=== PATIENT | female | born 1940 | race Caucasian/White ===

== ENCOUNTER 2017-10-21 05:52 | Emergency (ER) | payer MEDICARE, BC ==
[~2017-10-21] VITALS: Ht 160 cm; Wt 101.4 kg
[~2017-10-21 05:52] MED LIST: CARVEDILOL25 MG PO; ENALAPRIL5 MG PO; FUROSEMIDE20 MG PO; GLIPIZIDE2.5 MG PO; IBUPROFEN600 MG PO; KLOR-CON/2525 MEQ PO; METFORMIN500 MG PO; NYSTATIN OINTME15 GM TP; ZOCOR 40MG40 MG PO
[2017-10-21 05:57] VITALS: BP 158/79; TEMP 98.7
[2017-10-21 06:54] VITALS: PULSE 79
== END 2017-10-21 06:55 | disposition home or self-care (01) ==
LOC: COL.ER 05:52
DX: M25.561 Pain in right knee (principal); Z79.84 Long term (current) use of oral hypoglycemic drugs
CPT/HCPCS: J1885

== ENCOUNTER 2018-02-18 18:21 | Emergency (ER) | payer MEDICARE, BC ==
[~2018-02-18] VITALS: Ht 160 cm; Wt 96.4 kg
[~2018-02-18 18:21] MED LIST changes: -FUROSEMIDE20 MG PO; +LASIX 20MG TABL20 MG PO
[2018-02-18 18:24] VITALS: TEMP 97.6
[2018-02-18 19:17] LABS: BASO % 0.5 % (0.0-2.0); EOS # 0.1 (0.0-0.7); EOS % 1.4 % (0-4.0); GRAN # 3.5 (1.4-6.5); GRAN % 53.6 % (42.2-75.2); HEMATOCRIT 44.1 % (37.0-47.0); LYMPH # 2.5 (1.2-3.4); LYMPH % 37.9 % (20.0-51.0); MEAN CELL VOLUME 90 fl (80.0-100.0); MEAN CORPUSCULAR HEMOGLOBIN 29 pg (27.0-31.0); MEAN CORPUSCULAR HGB CONC 32 g/dl (33.0-37.0); MEAN PLATELET VOLUME 9.8 fl (7.4-10.4); MONO # 0.4 (0.1-0.6); MONO % 6.4 % (1.7-9.3); PLATELET COUNT 233 K/mm3 (130-400); RED BLOOD COUNT 4.92 M/mm3 (4.10-5.30); REDCELL DISTRIBUTION WIDTH-CV 14.6 % (11.5-14.5)
[2018-02-18 19:32] LABS: ALANINE AMINOTRANSFERASE 28 U/L (9-52); ALBUMIN 3.7 gm/dL (3.5-5.0); ALKALINE PHOSPHATASE 124 U/L (50-136); ANION GAP 5 mmol/L (7-16); AST,SGOT 13 U/L (15-37); BILIRUBIN,TOTAL 0.3 mg/dL (0.0-1.0); BLOOD UREA NITROGEN 13 mg/dL (7-17); C-REACTIVE PROTEIN 1.6 mg/dL (0.0-0.9); CALCIUM 8.6 mg/dL (8.4-10.2); CARBON DIOXIDE 27 mmol/L (22-30); CHLORIDE 105 mmol/L (98-107); CREATININE, serum 0.61 mg/dL (0.52-1.25); GLUCOSE 252 mg/dL (74-106); POTASSIUM 3.9 mmol/L (3.4-5.0); SODIUM 137 mmol/L (137-145); TOTAL PROTEIN 6.8 gm/dL (6.4-8.2)
[2018-02-18 19:42] LABS: TROPONIN-I < 0.012 ng/mL (0.000-0.034)
[2018-02-18] MEDS ORDERED: LIPITOR 10MG10 MG PO (20:37)
[2018-02-18] MEDS ORDERED: PROTONIX 40MG T40 MG PO (20:37)
[2018-02-18 21:05] VITALS: BP 125/87; PULSE 103
== END 2018-02-18 21:05 | disposition home or self-care (01) ==
LOC: COL.ER 18:21
PROVIDERS: Family Medicine
DX: K62.5 Hemorrhage of anus and rectum (principal); R00.0 Tachycardia, unspecified; I50.9 Heart failure, unspecified; E11.9 Type 2 diabetes mellitus without complications; K59.00 Constipation, unspecified; Z79.84 Long term (current) use of oral hypoglycemic drugs

== ENCOUNTER → 2018-07-14 | Outpatient (CLI) | payer MEDICARE, BC ==
[~2018-07-14] MED LIST changes: +LIPITOR 10MG10 MG PO; +PROTONIX 40MG T40 MG PO
== END ==
LOC: MC.RAD 12:56
DX: Z12.31 Encounter for screening mammogram for malignant neoplasm of breast (principal); Z78.0 Asymptomatic menopausal state

== ENCOUNTER 2018-09-16 18:04 | Emergency (ER) | payer MEDICARE, BC ==
[~2018-09-16] VITALS: Ht 160 cm; Wt 100.5 kg
[2018-09-16 18:14] VITALS: TEMP 97
[2018-09-16 18:41] VITALS: BP 110/66; PULSE 93
== END 2018-09-16 18:46 | disposition home or self-care (01) ==
LOC: COL.ER 18:04
DX: H11.32 Conjunctival hemorrhage, left eye (principal); E11.9 Type 2 diabetes mellitus without complications; I10 Essential (primary) hypertension; E78.00 Pure hypercholesterolemia, unspecified; J44.1 Chronic obstructive pulmonary disease with (acute) exacerbation; Z87.891 Personal history of nicotine dependence; Z79.84 Long term (current) use of oral hypoglycemic drugs

== ENCOUNTER 2018-09-22 17:17 | Emergency (ER) | payer MEDICARE, BC ==
[2018-09-22 17:25] VITALS: TEMP 97.8
[2018-09-22 19:39] LABS: BASO % 0.3 % (0.0-2.0); EOS # 0.1 (0.0-0.7); EOS % 0.8 % (0-4.0); GRAN # 6.3 (1.4-6.5); GRAN % 71.4 % (42.2-75.2); HEMATOCRIT 45.7 % (37.0-47.0); HEMOGLOBIN 14.6 g/dl (12.5-16.0); LYMPH # 1.9 (1.2-3.4); LYMPH % 21.4 % (20.0-51.0); MEAN CELL VOLUME 88 fl (80.0-100.0); MEAN CORPUSCULAR HEMOGLOBIN 28 pg (27.0-31.0); MEAN CORPUSCULAR HGB CONC 32 g/dl (33.0-37.0); MEAN PLATELET VOLUME 9.5 fl (7.4-10.4); MONO # 0.5 (0.1-0.6); MONO % 5.8 % (1.7-9.3); PLATELET COUNT 255 K/mm3 (130-400); RED BLOOD COUNT 5.22 M/mm3 (4.10-5.30)
[2018-09-22 19:53] LABS: ALBUMIN 3.9 gm/dL (3.5-5.0); BILIRUBIN,TOTAL 0.6 mg/dL (0.0-1.0); C-REACTIVE PROTEIN 2.3 mg/dL (0.0-0.9); CREATININE, serum 0.88 (0.52-1.25); POTASSIUM 3.9 mmol/L (3.4-5.0); TOTAL PROTEIN 7.2 gm/dL (6.4-8.2)
[2018-09-22 20:29] LABS: INR 1.1 (0.8-3.0); PROTHROMBIN TIME 12.3 SECONDS (9.7-12.8)
[2018-09-22] MEDS ORDERED: LIDODERM 5% PATC1 EA TP (20:51)
[2018-09-22 21:00] VITALS: BP 134/65; PULSE 68
== END 2018-09-22 21:00 | disposition home or self-care (01) ==
LOC: COL.ER 17:17
PROVIDERS: Emergency Medicine
DX: M25.511 Pain in right shoulder (principal); E78.5 Hyperlipidemia, unspecified; I10 Essential (primary) hypertension; E11.9 Type 2 diabetes mellitus without complications; Z90.710 Acquired absence of both cervix and uterus; Z90.49 Acquired absence of other specified parts of digestive tract
CPT/HCPCS: J1885

== ENCOUNTER → 2018-09-27 | Outpatient (CLI) | payer MEDICARE, BC ==
[~2018-09-27] MED LIST changes: +LIDODERM 5% PATC1 EA TP
== END ==
LOC: COL.RAD 10:23
DX: R91.1 Solitary pulmonary nodule (principal)
CPT/HCPCS: Q9967

== ENCOUNTER 2018-11-26 21:43 | Emergency (ER) | payer MEDICARE, BC ==
[~2018-11-26] VITALS: Ht 162.6 cm; Wt 100.5 kg
[2018-11-26 21:57] VITALS: TEMP 98.1
[2018-11-26] MEDS ORDERED: ULTRAM 50MG TAB50 MG PO ×2 (22:17→23:50)
[2018-11-26 22:54] LABS: BASO % 0.4 % (0.0-2.0); EOS # 0.1 (0.0-0.7); EOS % 0.8 % (0-4.0); GRAN # 6.8 (1.4-6.5); GRAN % 71.2 % (42.2-75.2); HEMOGLOBIN 14.1 g/dl (12.5-16.0); LYMPH # 1.9 (1.2-3.4); LYMPH % 19.9 % (20.0-51.0); MEAN CELL VOLUME 89 fl (80.0-100.0); MEAN CORPUSCULAR HEMOGLOBIN 28 pg (27.0-31.0); MEAN CORPUSCULAR HGB CONC 31 g/dl (33.0-37.0); MEAN PLATELET VOLUME 9.5 fl (7.4-10.4); MONO # 0.7 (0.1-0.6); MONO % 7.3 % (1.7-9.3); PLATELET COUNT 230 K/mm3 (130-400); RED BLOOD COUNT 5.04 M/mm3 (4.10-5.30); REDCELL DISTRIBUTION WIDTH-CV 16.1 % (11.5-14.5)
[2018-11-26 23:04] LABS: ALANINE AMINOTRANSFERASE 11 U/L (9-52); ALBUMIN 3.8 gm/dL (3.5-5.0); ALKALINE PHOSPHATASE 146 U/L (50-136); ANION GAP 12 mmol/L (7-16); AST,SGOT 14 U/L (15-37); BILIRUBIN,TOTAL 0.4 mg/dL (0.0-1.0); BLOOD UREA NITROGEN 16 mg/dL (7-17); CALCIUM 8.5 mg/dL (8.4-10.2); CARBON DIOXIDE 31 mmol/L (22-30); CHLORIDE 99 mmol/L (98-107); CREATININE, serum 0.65 (0.52-1.25); GLUCOSE 197 mg/dL (74-106); POTASSIUM 3.5 mmol/L (3.4-5.0); SODIUM 141 mmol/L (137-145); TOTAL PROTEIN 6.8 gm/dL (6.4-8.2)
[2018-11-26 23:19] LABS: TROPONIN-I < 0.012 ng/mL (0.000-0.035)
[2018-11-27 02:10] VITALS: BP 106/63; PULSE 91
== END 2018-11-27 01:55 | disposition home or self-care (01) ==
LOC: COL.ER 21:43
PROVIDERS: Emergency Medicine
DX: M54.6 Pain in thoracic spine (principal); E78.5 Hyperlipidemia, unspecified; F03.90 Unspecified dementia, unspecified severity, without behavioral disturbance, psychotic disturbance, mood disturbance, and anxiety; K21.9 Gastro-esophageal reflux disease without esophagitis; Z90.89 Acquired absence of other organs; Z87.891 Personal history of nicotine dependence; Z79.84 Long term (current) use of oral hypoglycemic drugs; Z87.09 Personal history of other diseases of the respiratory system
CPT/HCPCS: Q9967

== ENCOUNTER 2018-12-03 10:41 | Emergency (ER) | payer MEDICARE, BC ==
[~2018-12-03] VITALS: Ht 160 cm; Wt 100.2 kg
[~2018-12-03 10:41] MED LIST changes: +ULTRAM 50MG TAB50 MG PO
[2018-12-03 11:13] LABS: BASO % 0.4 % (0.0-2.0); EOS # 0.1 (0.0-0.7); EOS % 0.9 % (0-4.0); GRAN # 8.1 (1.4-6.5); GRAN % 78.9 % (42.2-75.2); HEMATOCRIT 44.3 % (37.0-47.0); HEMOGLOBIN 13.8 g/dl (12.5-16.0); LYMPH # 1.4 (1.2-3.4); LYMPH % 13.5 % (20.0-51.0); MEAN CELL VOLUME 90 fl (80.0-100.0); MEAN CORPUSCULAR HEMOGLOBIN 28 pg (27.0-31.0); MEAN CORPUSCULAR HGB CONC 31 g/dl (33.0-37.0); MEAN PLATELET VOLUME 9.6 fl (7.4-10.4); MONO # 0.6 (0.1-0.6); MONO % 5.9 % (1.7-9.3); PLATELET COUNT 264 K/mm3 (130-400); RED BLOOD COUNT 4.92 M/mm3 (4.10-5.30); REDCELL DISTRIBUTION WIDTH-CV 15.7 % (11.5-14.5)
[2018-12-03 11:19] LABS: INR 0.9 (0.8-3.0); PROTHROMBIN TIME 10.8 SECONDS (9.7-12.8)
[2018-12-03 11:25] LABS: ALANINE AMINOTRANSFERASE 11 U/L (9-52); ALBUMIN 3.8 gm/dL (3.5-5.0); ALKALINE PHOSPHATASE 141 U/L (50-136); ANION GAP 10 mmol/L (7-16); AST,SGOT 17 U/L (15-37); BILIRUBIN,TOTAL 0.6 mg/dL (0.0-1.0); BLOOD UREA NITROGEN 15 mg/dL (7-17); C-REACTIVE PROTEIN 1.2 mg/dL (0.0-0.9); CALCIUM 8.6 mg/dL (8.4-10.2); CARBON DIOXIDE 29 mmol/L (22-30); CHLORIDE 99 mmol/L (98-107); CREATININE, serum 0.73 (0.52-1.25); GLUCOSE 211 mg/dL (74-106); LIPASE 78 U/L (23-300); SODIUM 138 mmol/L (137-145); TOTAL PROTEIN 6.9 gm/dL (6.4-8.2)
[2018-12-03 11:34] LABS: TROPONIN-I < 0.012 ng/mL (0.000-0.035)
[2018-12-03 15:51] VITALS: BP 114/62; PULSE 82
== END 2018-12-03 15:51 | disposition home or self-care (01) ==
LOC: COL.ER 10:41
PROVIDERS: Emergency Medicine
DX: R07.89 Other chest pain (principal); E78.00 Pure hypercholesterolemia, unspecified; I10 Essential (primary) hypertension; E78.5 Hyperlipidemia, unspecified; F03.90 Unspecified dementia, unspecified severity, without behavioral disturbance, psychotic disturbance, mood disturbance, and anxiety; Z87.891 Personal history of nicotine dependence; Z90.89 Acquired absence of other organs; Z79.84 Long term (current) use of oral hypoglycemic drugs
CPT/HCPCS: J2405; J7030

== ENCOUNTER 2019-05-06 14:25 | Emergency (ER) | payer MEDICARE, BC ==
[~2019-05-06] VITALS: Ht 160 cm; Wt 100.0 kg
[2019-05-06 14:52] VITALS: BP 133/109
[2019-05-06 16:49] LABS: BASO % 0.3 % (0.0-2.0); EOS % 0.4 % (0-4.0); GRAN # 6.6 (1.4-6.5); GRAN % 69.1 % (42.2-75.2); HEMATOCRIT 44.9 % (37.0-47.0); HEMOGLOBIN 14.5 g/dl (12.5-16.0); LYMPH # 2.1 (1.2-3.4); LYMPH % 21.8 % (20.0-51.0); MEAN CELL VOLUME 88 fl (80.0-100.0); MEAN CORPUSCULAR HEMOGLOBIN 29 pg (27.0-31.0); MEAN CORPUSCULAR HGB CONC 32 g/dl (33.0-37.0); MEAN PLATELET VOLUME 10.3 fl (7.4-10.4); MONO # 0.8 (0.1-0.6); PLATELET COUNT 222 K/mm3 (130-400); RED BLOOD COUNT 5.08 M/mm3 (4.10-5.30); REDCELL DISTRIBUTION WIDTH-CV 14.3 % (11.5-14.5)
[2019-05-06 17:01] LABS: ALANINE AMINOTRANSFERASE < 6 U/L (9-52); ALBUMIN 4.1 gm/dL (3.5-5.0); ALKALINE PHOSPHATASE 130 U/L (50-136); ANION GAP 11 mmol/L (7-16); AST,SGOT 13 U/L (15-37); BILIRUBIN,TOTAL 0.6 mg/dL (0.0-1.0); BLOOD UREA NITROGEN 13 mg/dL (7-17); CARBON DIOXIDE 29 mmol/L (22-30); CHLORIDE 98 mmol/L (98-107); CREATININE, serum 0.91 (0.52-1.25); GLUCOSE 232 mg/dL (74-106); SODIUM 139 mmol/L (137-145); URIC ACID 6.6 mg/dL (2.5-6.2)
[2019-05-06 17:05] LABS: POTASSIUM 2.9 mmol/L (3.4-5.0)
[2019-05-06 17:27] LABS: ERYTHROCYTE SEDIMENTATION RATE 25 mm/hr (0-30)
[2019-05-06] MEDS ORDERED: NORCO 325 MG-51 TAB PO (19:34)
[2019-05-06 20:02] LABS: SYNOVIAL FL. MONONUCLEAR 9.8 % (0-75); SYNOVIAL FLUID RBC 2000 /mm3 (0-0); SYNOVIAL FLUID WBC 12061 /mm3 (200-600)
[2019-05-06 20:08] LABS: SYNOVIAL FLUID APPEARANCE CLOUDY; SYNOVIAL FLUID COLOR YELLOW
[2019-05-06 20:15] VITALS: PULSE 78; TEMP 97.7
== END 2019-05-06 20:17 | disposition home or self-care (01) ==
LOC: COL.ER 14:25
PROVIDERS: Emergency Medicine
DX: M25.562 Pain in left knee (principal); E78.5 Hyperlipidemia, unspecified; I10 Essential (primary) hypertension; Z79.84 Long term (current) use of oral hypoglycemic drugs

== ENCOUNTER 2019-06-10 13:08 | Emergency (ER) | payer MEDICARE, BC ==
[~2019-06-10] VITALS: Ht 160 cm; Wt 50.9 kg
[~2019-06-10 13:08] MED LIST changes: +NORCO 325 MG-51 TAB PO
[2019-06-10] MEDS ORDERED: TAMIFLU 75MG75 MG PO (14:42)
[2019-06-10 14:50] LABS: MEAN CELL VOLUME 90 fl (80.0-100.0); MEAN CORPUSCULAR HEMOGLOBIN 28 pg (27.0-31.0); MEAN CORPUSCULAR HGB CONC 31 g/dl (33.0-37.0); PLATELET COUNT 193 K/mm3 (130-400); REDCELL DISTRIBUTION WIDTH-CV 15.4 % (11.5-14.5)
[2019-06-10 15:00] LABS: ALBUMIN 3.8 gm/dL (3.5-5.0); BILIRUBIN,TOTAL 0.4 mg/dL (0.0-1.0); CALCIUM 7.5 mg/dL (8.4-10.2); CREATININE, serum 0.87 (0.52-1.25); TOTAL PROTEIN 6.8 gm/dL (6.4-8.2)
[2019-06-10 16:26] VITALS: BP 107/62; PULSE 73; TEMP 98.9
[2019-06-10 16:46] LABS: BASO % 0.4 % (0.0-2.0); EOS # 0.1 (0.0-0.7); EOS % 1.1 % (0-4.0); GRAN # 2.6 (1.4-6.5); GRAN % 58.6 % (42.2-75.2); LYMPH # 1.4 (1.2-3.4); LYMPH % 31.2 % (20.0-51.0); MONO # 0.4 (0.1-0.6); MONO % 8.3 % (1.7-9.3)
== END 2019-06-10 16:24 | disposition home or self-care (01) ==
LOC: COL.ER 13:08
PROVIDERS: Emergency Medicine
DX: J10.1 Influenza due to other identified influenza virus with other respiratory manifestations (principal); E87.6 Hypokalemia; E11.9 Type 2 diabetes mellitus without complications; Z79.84 Long term (current) use of oral hypoglycemic drugs; Z79.891 Long term (current) use of opiate analgesic; Z88.2 Allergy status to sulfonamides
CPT/HCPCS: J7030